=== PATIENT | male | born 1960 | race Caucasian/White ===

== ENCOUNTER 2019-01-22 07:32 | Outpatient (CLI) | payer MEDICARE, BC ==
--- NOTE | 2019-01-22 09:59 | CT ---
Exam: Noncontrast chest CT; CT lung scan low dose HISTORY:Low-dose screening lung CT. Asbestos exposure. 40+ years smoking history. COMPARISON: None TECHNIQUE: Low-dose screening lung CT is performed utilizing institutional protocol FINDINGS: Lung screening specific (LUNG-RADS): Category 1. Negative exam. No CT evidence of suspicious masses o r nodules. Potential significant incidentals (lung RADS category S): None Pulmonary incidentals:There is evidence of subsegmental scar and/or atelectasis in the lingula, bilat eral lower lobes. Other incidentals: Calcification of the pericardium likely due to remote event. IMPRESSION: 1. Lung RADS : Category 1. Negative exam. 2. Lung Rask category S: Negative. No new or unknown potential significant incidental findings requir ing urgent additional evaluation 3. Other incidentals as above. Recommendation: Continued routine annual low-dose lung screening CT. Follow-up in one year.
== END 2019-01-22 07:33 | disposition home or self-care (01) ==
LOC: CT 07:32
PROVIDERS: ATTEND Family Medicine
DX: Z12.2 Encounter for screening for malignant neoplasm of respiratory organs (principal); Z87.891 Personal history of nicotine dependence
CPT/HCPCS: G0297

== ENCOUNTER 2020-05-13 07:53 | Outpatient (CLI) | payer MEDICARE, BC ==
--- NOTE | 2020-05-13 10:08 | CT ---
CT LOW DOSE LUNG SCAN: Date: 05/13/2020 HISTORY: Patient is a former smoker. History of nicotine dependence, 1 pack/day for 30 years. History of COPD. COMPARISON: 01/22/2019 exam. FINDINGS: The parenchymal scarring within the left lower lobe is a similar appearance to the previous examinati on. No pulmonary nodules are identified. No infiltrative lung change. Mediastinal structures show some calcification associated with the pericardium, similar to the previo us exam. Thoracic aorta is normal in caliber. Visualized liver parenchyma shows no focal findings. IMPRESSION: Lung-RADS Category 1 - Negative. Annual follow-up is recommended. POS: [facility]IS[facility]
== END 2020-05-13 07:54 | disposition home or self-care (01) ==
LOC: BICCT 07:53
PROVIDERS: ATTEND Family Medicine
DX: Z12.2 Encounter for screening for malignant neoplasm of respiratory organs (principal); Z87.891 Personal history of nicotine dependence
CPT/HCPCS: G0297